=== PATIENT | female | born 1990 | race Caucasian/White ===

== ENCOUNTER 2017-08-25 14:50 | Emergency (ER) | payer OTHER ==
--- NOTE | 2017-08-25 17:25 | OBHP ---
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 PMH: Dneis PSH: [place] FHX: non contrubitoy mEDS: pnv NKDA Shx; negaive etoh/tobacco/rugs Bedsie Sonogram BPp 8/8 PATRICK 10cm, vtx, atn lacenta A/P @ 39 wks not in active labor with maternal adn reasusign well being -dc home -rto wed -labor precuaiton Pelvic Type - PN: Adequate Extremities - PN: Normal Abdomen - PN: Normal Back - PN: Normal Breast - PN: Normal Lungs - PN: Normal Heart - PN: Normal Thyroid - PN: Normal Neurologic - PN: Normal HEENT - PN: Normal General - PN: Normal Presentation-Admit: Vertex FHR - Baseline A Provider: 150 Contraction Comments Provider: q 2-3 Gestation - Est Wks by US: 39.0 IP Hx Assessment: The History has been Reviewed and is Current EGA AdmitDate IP: 39.0 Vital Signs Provider: Reviewed; Within Normal Limits IP Chief Complaint: Uterine contractions NICHD Variability Prov Fetus A: Moderate 6-25bpm FHR Category Provider Fetus A: Category I NICHD Decel Fetus A IP Provider: None Dilatation, Provider: 1 Effacement, Provider: 50 Station, Provider: -3 Genitourinary Exam: Normal DTRs - PN: Normal
== END 2017-08-25 17:30 | disposition home or self-care (01) ==
LOC: C.EROB 14:50
DX: O26.853 Spotting complicating pregnancy, third trimester (principal); Z3A.39 39 weeks gestation of pregnancy

== ENCOUNTER 2017-08-26 00:40 | Inpatient (IN) | payer OTHER ==
--- NOTE | 2017-08-26 01:15 | OBHP ---
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 PMH: Dneis PSH: [place] FHX: non contrubitoy mEDS: pnv NKDA Shx; negaive etoh/tobacco/rugs A/P @ 39 wks+ for thereptauic rst -admit -npo, iv f-admisisn labs -cont toco and efm -analgesia -reevaluate Pelvic Type - PN: Adequate Extremities - PN: Normal Abdomen - PN: Normal Back - PN: Normal Breast - PN: Not Done Lungs - PN: Normal Heart - PN: Normal Thyroid - PN: Not Done Neurologic - PN: Normal HEENT - PN: Normal General - PN: Normal Presentation-Admit: Vertex FHR - Baseline A Provider: 145 Membranes, Provider: Bulging Contraction Comments Provider: q1-3 min Gestation - Est Wks by US: 39.2 IP Hx Assessment: The History has been Reviewed and is Current EGA AdmitDate IP: 39.2 Vital Signs Provider: Reviewed; Within Normal Limits IP Chief Complaint: Uterine contractions NICHD Variability Prov Fetus A: Moderate 6-25bpm FHR Category Provider Fetus A: Category I Dilatation, Provider: 2 Effacement, Provider: 90 Station, Provider: -2 Genitourinary Exam: Normal DTRs - PN: Normal
[2017-08-26] MEDS ORDERED: DiphenhydrAMINE 50 mg/ml Inj IVP STA (01:16)
--- NOTE | 2017-08-26 01:29 | OBADHP ---
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 PMH: Dneis PSH: [place] FHX: non contrubitoy mEDS: pnv NKDA Shx; negaive etoh/tobacco/rugs A/P @ 39 wks+ for thereptauic rst -admit -npo, iv f-admisisn labs -cont toco and efm -analgesia -reevaluate Pelvic Type - PN: Adequate Extremities - PN: Normal Abdomen - PN: Normal Back - PN: Normal Breast - PN: Not Done Lungs - PN: Normal Heart - PN: Normal Thyroid - PN: Not Done Neurologic - PN: Normal HEENT - PN: Normal General - PN: Normal Presentation-Admit: Vertex FHR - Baseline A Provider: 145 Membranes, Provider: Bulging Contraction Comments Provider: q1-3 min Gestation - Est Wks by US: 39.2 IP Hx Assessment: The History has been Reviewed and is Current Vital Signs Provider: Reviewed; Within Normal Limits IP Chief Complaint: Uterine contractions NICHD Variability Prov Fetus A: Moderate 6-25bpm FHR Category Provider Fetus A: Category I Dilatation, Provider: 2 Effacement, Provider: 90 Station, Provider: -2 Genitourinary Exam: Normal DTRs - PN: Normal EGA AdmitDate IP: 39.2 IP Adm Impression: Term, intrauterine IP Admit Plan: Admit to unit Datetime: 08/25/2017 17:22 NICHD Decel Fetus A IP Provider: None
[2017-08-26] MEDS: Lactated Ringer's 1,000 ML IV SCH ×2 (01:30→06:00)
[2017-08-26] MEDS ORDERED: Nalbuphine 20 mg/ml Inj (1 ml) IVP PRN (01:30)
[2017-08-26] MEDS ORDERED: Nalbuphine 20 mg/ml Inj (1 ml) ONE (01:44)
[2017-08-26 03:08] LABS: BASO # 0.1 K/uL (0.0-0.2); BASO % 0.5 % (0.0-2.0); EOS % 0.3 % (0.0-4.0); HEMOGLOBIN 13.4 g/dL (11.0-16.0); LYMPH # 1.4 K/uL (1.0-4.3); MEAN CELL VOLUME 89.4 fL (81.0-99.0); MEAN CORPUSCULAR HEMOGLOBIN 30.7 pg (27.0-31.0); MEAN CORPUSCULAR HGB CONC 34.4 g/dL (33.0-37.0); MEAN PLATELET VOLUME 9.6 fL (7.2-11.7); MONO # 0.7 K/uL (0.0-0.8); MONO % 5.9 % (0.0-10.0); NEUT # 8.9 K/uL (1.8-7.0); NEUT % 80.3 % (50.0-75.0); NRBC % 0.1 % (0.0-2.0); RBC 4.35 Mil/uL (3.80-5.20); RED CELL DISTRIBUTION WIDTH 13.8 % (11.5-14.5); WHITE BLOOD COUNT 11.1 K/uL (4.8-10.8)
[2017-08-26 03:17] LABS: ALB/GLOB RATIO 1.1 (1.0-2.1); ALBUMIN 3.7 g/dL (3.5-5.0); ALT/SGPT 36 U/L (9-52); AST/SGOT 28 U/L (14-36); BLOOD UREA NITROGEN 8 mg/dL (7-17); CALCIUM 9.5 mg/dl (8.6-10.4); GFR AFRICAN-AMERICAN > 60; GFR NON-AFRICAN AMERICAN > 60
--- NOTE | 2017-08-26 07:29 | OBPN ---
Datetime: 08/26/2017 07:25 IP Progress Impression: Normal progression of labor IP Informed Consent Obtain: Vaginal Delivery IP Procedures: Artificial ROM IP Progress Plan: Continue present management Membranes, Provider: Ruptured Amniotic Fluid Color, Provider: Clear Contraction Comments Provider: q2-3 min FHR - Baseline A Provider: 150 Gestation - Est Wks by US: 39.2 Presentation-Admit: Vertex IP Progress Note Comment: pt seen and emxained and reprots feeling better iwth pian medicaiotn but c tx 10/21 dneis lof, vb, +FM possilbyt need more mediciatn vss EF: cat I tOOT; q 2-3 min VE: 5/90/-2 AROM ,clear A/P @ 39.2 wks GA in active labor -cont ucrrent manget =anetheis contl prn Vital Signs Provider: Reviewed; Within Normal Limits FHR Category Provider Fetus A: Category I NICHD Variability Prov Fetus A: Moderate 6-25bpm Dilatation, Provider: 5 Effacement, Provider: 90 Station, Provider: -2 NICHD Decel Fetus A IP Provider: None
[2017-08-26] MEDS ORDERED: Penicillin G 5 Million Unit Vial IVPB ONE (07:36)
[2017-08-26] MEDS ORDERED: Penicillin G Potassium 5 MU in Sodium Chloride 0.9% 50 ML IV ONE (08:00)
[2017-08-26] MEDS ORDERED: Fentanyl/Bupivacaine HCl 250 ML EPI ONE (09:01)
[2017-08-26] MEDS ORDERED: Oxytocin 30 UNIT 30 UNITS/500 ML BAG IV ONE (09:13)
[2017-08-26] MEDS ORDERED: Oxytocin 30 UNIT 30 UNITS/500 ML BAG IV SCH (09:45)
[2017-08-26] MEDS ORDERED: Oxycodone/Acetaminophen 5/325 mg Tab PO PRN ×2 (16:32)
--- NOTE | 2017-08-26 16:47 | OBDS ---
DELIVERY PERSONNEL Delivery Doctor: Huey Francis MD Sizing Sponger: Paul Villatoro RN Anesthesiologist: josh MATERNAL INFORMATION Delivery Anesthesia: Epidural Medications in Delivery: pitocin 20 Placenta Cultured: No Maternal Complications: None Provider Comments: pt was fully dilated and pushing. Atramatic, spontaenous delieyr of head in OA p osition, no nuchal cord noted. Aturmatic, spoenatous deliveyr of naterior followed by posteri shoulde r followed by delivery of the body. Both oral and nasal passages of the baby wer ebulb suctioned, umb ical cord was clamped and cut. Cord blood cand cord gases colelcted ans senx x 2. Spotenaou deliveyr of intact placenta with membrnea. fundus fimr, goo dhemsosis, intact perienum Good hemostis, no comp licated live female agpars 9,9 ebl 100ml no complicaitns LABOR SUMMARY EDC: 08/31/2017 00:00 No. Babies in Womb: 1 Attempted: No LABOR INFORMATION Reason for Induction: Other Reason for Induction Other: pain Oxytocin: Augmentation Group B Beta Strep: Positive Antibiotics # of Doses: 2 Antibiotics Time of Last Dose: 1200 Steroids Given: None Reason Steroids Not Administered: Not Applicable MEMBRANES Membranes Rupture Method: Artificial Rupture of Membranes: 08/26/2017 07:24 Length of Rupture (hrs): 8.83 Amniotic Fluid Color: Clear Amniotic Fluid Amount: Moderate Amniotic Fluid Odor: Normal STAGES OF LABOR Stage 3 hrs: 0 Stage 3 min: 4 VAGINAL DELIVERY Episiotomy: None Laceration Extension: N/A Laceration Type: None Initial Vag Sponge Count: 10 Final Vag Sponge Count: 10 Sponge Count Correct: Yes Sharps Count Correct: Yes BABY A INFORMATION Delivery Date/Time: 08/26/2017 16:14 Method of Delivery: Vaginal Born in Route : No : N/A Forceps: N/A Vacuum Extraction: N/A Shoulder Dystocia : No SHOULDER DYSTOCIA BABY A Infant Delivery Date/Time: 08/26/2017 16:14 PRESENTATION/POSITION BABY A Presentation: Cephalic Cephalic Presentation: Vertex Breech Presentation: N/A PLACENTA INFORMATION BABY A Placenta Delivery Time : 08/26/2017 16:18 Placenta Method of Delivery: Spontaneous Placenta Status: Delivered SCORES BABY A Heart Rate 1 min: >100 bpm Resp Effort 1 min: Good Cry Reflex Irritability 1 min: Cough or Sneeze or Pulls Away Muscle Tone 1 min: Active Motion Color 1 min: Body [place], Extremities Blue Resuscitation Effort 1 min: Tactile Stimulation SCORE 1 MIN: 9 Heart Rate 5 min: >100 bpm Resp Effort 5 min: Good Cry Reflex Irritability 5 min: Cough or Sneeze or Pulls Away Muscle Tone 5 min: Active Motion Color 5 min: Body [place], Extremities Blue SCORE 5 MIN: 9 INFORMATION BABY A Gestational Age at Delivery: 39.0 Gestational Status: Term Outcome : Liveborn Condition : Stable Infant Sex: Female IDENTIFICATION/MEDS BABY A ID Band Number: [id number] ID Band Location: Left Leg; Left Arm Sensor Number: [id number] Sensor Location : Cord Clamp WEIGHT/LENGTH BABY A Birthweight (gms): 2760 Weight (lb): 6 Weight (oz): 1 Length Inches: 18.50 Length cms: 47.0 CORD INFORMATION BABY A No. Cord Vessels: 3 Nuchal Cord : N/A Cord Blood Taken: Yes Suction: Mouth; Nose ASSESSMENT BABY A Infant Complications: None Physical Findings at Delivery: Within Normal Limits Infant Respirations: Appears Normal Can Inspector/ALS Called : No Infant Care By: dr madrigal Transferred To: Nursery
[2017-08-27 08:24] LABS: BASO # 0.1 K/uL (0.0-0.2); BASO % 0.4 % (0.0-2.0); EOS % 0.2 % (0.0-4.0); HEMOGLOBIN 12.6 g/dL (11.0-16.0); LYMPH # 1.7 K/uL (1.0-4.3); LYMPH % 11.9 % (20.0-40.0); MEAN CELL VOLUME 89.1 fL (81.0-99.0); MEAN CORPUSCULAR HEMOGLOBIN 31.4 pg (27.0-31.0); MEAN CORPUSCULAR HGB CONC 35.3 g/dL (33.0-37.0); MEAN PLATELET VOLUME 9.1 fL (7.2-11.7); MONO # 0.8 K/uL (0.0-0.8); MONO % 5.7 % (0.0-10.0); NEUT # 11.7 K/uL (1.8-7.0); NEUT % 81.8 % (50.0-75.0); RBC 4.02 Mil/uL (3.80-5.20); RED CELL DISTRIBUTION WIDTH 13.8 % (11.5-14.5); WHITE BLOOD COUNT 14.3 K/uL (4.8-10.8)
[2017-08-27 09:53] VITALS: RESP 20
[2017-08-27] MEDS ORDERED: Multiple Vitamins Tab PO SCH (10:00)
[2017-08-27] MEDS: Multiple Vitamins Tab PO SCH (10:32)
[2017-08-28 00:34] VITALS: O2SAT 98
[2017-08-28] MEDS: Multiple Vitamins Tab PO SCH (10:29)
[2017-08-28 22:30] VITALS: BP 104/67; PULSE 95; TEMP 98.7
== END 2017-08-28 16:25 | disposition home or self-care (01) | DRG 775 ==
LOC: C.EROB 00:40 → C.4D 01:15 → C.4M 08-27 08:00
PROVIDERS: ADMIT Obstetrics & Gynecology; ATTEND Obstetrics & Gynecology
PROC: 10E0XZZ Delivery of Products of Conception, External Approach (ICD-10-PCS; principal; 2017-08-26)
PROC: 10907ZC Drainage of Amniotic Fluid, Therapeutic from Products of Conception, Via Natural or Artificial Opening (ICD-10-PCS; 2017-08-26)
DX: O99.824 Streptococcus B carrier state complicating childbirth (principal); Z3A.39 39 weeks gestation of pregnancy; Z37.0 Single live birth